=== PATIENT | male | born 1945 | race Caucasian/White ===

== ENCOUNTER 2016-08-28 08:23 | Day surgery (SDC) | payer MEDICARE, OTHER ==
--- NOTE | ~2016-08-28 | EGD ---
EGD REPORT [facility] [address] [place] [address] NAME: JUDSON YLLES : [birth year] STATUS : [facility]#: [id number] AGE: 71 ADM/REG DATE : 08/28/16 MR#: [id number] REPORT SERV DATE: 08/28/16 DICTATED BY: JOSEPH GUTIÉRREZ DATE: 08/28/16 REPORT STATUS : Draft TRANSCRIBED BY: [employer] DATE: 08/28/16 [facility] Patient Name: Judson Lyles Date of : 1945 Attending MD: JOSEPH GUTIÉRREZ MD Procedure Date No Time: 08/28/2016 Procedure: Colonoscopy Indications: Screening in patient at increased risk: Family history of 1st-degree relative with colorectal cancer Referring MD: JOSEPH PAULSON MD Medicines: as per anesthesia Complications: No immediate complications. Procedure: Pre-Anesthesia Assessment: - ASA Grade Assessment: III - A patient with severe systemic disease. After I obtained informed consent, the scope was passed under direct vision. Throughout the procedure, the patient's blood pressure, pulse, and oxygen saturations were monitored continuously. The PCF [id number] was introduced through the anus and advanced to the cecum, identified by appendiceal orifice and ileocecal valve. The colonoscopy was performed without difficulty. The patient tolerated the procedure. The quality of the bowel preparation was fair. Findings: The perianal and digital rectal examinations were normal. Multiple small and large-mouthed diverticula were found in the sigmoid colon and in the descending colon. Internal hemorrhoids were found during endoscopy and were mild. Impression: - Diverticulosis in the sigmoid colon and in the descending colon. - Internal hemorrhoids. Recommendation: - Repeat colonoscopy in 3 years for surveillance. Procedure Code(s): --- Professional --- 77613, Colonoscopy, flexible, proximal to splenic flexure; diagnostic, with or without collection of specimen(s) by brushing or washing, with or without colon decompression (separate procedure) Diagnosis Code(s): --- Professional --- K64.8, Other hemorrhoids EGD REPORT [facility] [address] [place], [place] [address]. [address] NAME: JUDSON LYLES : [birth year] STATUS : [facility]#: [id number] AGE: 71 ADM/REG DATE : 08/28/16 MR#: [id number] REPORT SERV DATE: 08/28/16 DICTATED BY: JOSEPH GUTIÉRREZ DATE: 08/28/16 REPORT STATUS : Draft TRANSCRIBED BY: [employer] DATE: 08/28/16 K57.30, Diverticulosis of large intestine without perforation or abscess without bleeding Z12.11, Encounter for screening for malignant neoplasm of colon Z80.0, Family history of malignant neoplasm of digestive organs CPT copyright 2013 [employer]. All rights reserved. The codes documented in this report are preliminary and upon remote medical coder review may be revised to meet current compliance requirements. JOSEPH GUTIÉRREZ MD 08/28/2016 10:55 AM This report has been signed electronically. Number of Addenda: 0 Note Initiated On: 08/28/2016 10:27 AM Scope Withdrawal Time 0 hours 7 minutes 58 seconds [address] [facility] [place] [address]
[~2016-08-28 08:23] MED LIST: ALEVE220 MG PO; AMOXICILLIN PO; ASAB PO; ASPERCREME TOP; ATV.5 PO; ATV1 PO; BACDS PO; CAT1 PO; CELEXA40 MG PO; CORDARONE PO; DIOVAN; DURICEF PO; GLUCOV1.25 PO; GLUCOVANCE PO; HALF81 PO; HCTZ PO; HCTZ25B PO; HCTZ50B PO; HUMALOG SC; HYDRALAZINE100 MG PO; HYDROCHLOROT25 MG PO; ICY HOT16 % TOP; LANTUSCART SC; LIPITOR40 PO; LONITEN2.5 PO; LOP25 PO; LOP50 PO; LORTAB 5 PO; LOTREL1 CA4 PO; LOTREL1 CA5 PO; MAXZIDE PO; NITROSTAT0.4 MG SL; NORV10 PO; NORV5 PO; PRAVAC PO; PRILOSEC40 MG PO; PRIN10 PO; PRIN20 PO; SPIRO50 PO; TYLENOL PM PO; VICODINTAB PO
== END 2016-08-28 23:59 | disposition home health service (06) ==
LOC: DMU 08:23
PROVIDERS: Internal Medicine Gastroenterology
PROC: 0DJD8ZZ Inspection of Lower Intestinal Tract, Via Natural or Artificial Opening Endoscopic (ICD-10-PCS; principal; 2016-08-28 10:00)
DX: Z12.11 Encounter for screening for malignant neoplasm of colon (principal); K57.30 Diverticulosis of large intestine without perforation or abscess without bleeding; K64.8 Other hemorrhoids; I10 Essential (primary) hypertension; E78.00 Pure hypercholesterolemia, unspecified; I25.10 Atherosclerotic heart disease of native coronary artery without angina pectoris; I25.2 Old myocardial infarction; K21.9 Gastro-esophageal reflux disease without esophagitis; Z95.1 Presence of aortocoronary bypass graft; G47.33 Obstructive sleep apnea (adult) (pediatric); Z99.81 Dependence on supplemental oxygen; Z80.0 Family history of malignant neoplasm of digestive organs; Z87.891 Personal history of nicotine dependence; M19.90 Unspecified osteoarthritis, unspecified site; E11.9 Type 2 diabetes mellitus without complications; Z90.49 Acquired absence of other specified parts of digestive tract; Z98.890 Other specified postprocedural states; F41.9 Anxiety disorder, unspecified
CPT/HCPCS: 82962